=== PATIENT | female | born 1965 | race Caucasian/White ===

== ENCOUNTER 2021-07-09 20:00 | Outpatient (CLI) | payer OTHER, SELFPAY ==
--- NOTE | 2021-08-02 17:48 | WPDSLEEPSTUD ---
Sleep Study Date of Study: 07/09/21 Ordering Provider: Billie Rosenbaum MD Interpreting Physician: Billie Rosenbaum MD Sleep Study Type: Split Polysomnogram Height: 1.63 m Weight: 68.039 kg Body Mass Index: 25.7 Neck Circumference (inches): 14 [place]: 8 Reason for Sleep Study Severe loud snoring Sleep History Amna Harrington is a 55 year old female with loud snoring for 20 years. She has used Unisom, an over the counter sleep aid, for years to initiate sleep. She also takes melatonin between 8:00 p.m. and 9:00 p.m.. She has had witnessed apneas. Her snoring wakes her up and disturbs others. She does not feel rested when she wakes and she feels sleepy throughout the day. She wakes up with headaches. There is a family history of sleep issues with her father having sleep apnea. She frequently has trouble sleeping with a cold, and occasionally wakes at night gasping for breath. she frequently sweats excessively at night. She does not notice her heart pounding or beating irregularly at night. She rarely falls asleep during the day, rarely falls asleep involuntarily and never falls asleep while driving. She does not have loss of muscle tone with strong emotion. She occasionally has daytime difficulties due to excessive sleepiness. She does not feel paralyzed on waking or falling asleep. She rarely has vivid dreamlike scenes upon awakening or falling asleep. She does not feel afraid to go to sleep. She does not have nightmares. She occasionally remembers her dreams. She occasionally has racing thoughts. She occasionally feels sad or depressed. She frequently has anxiety. She frequently has muscular tension. She does not notice parts of her body jerking and she does not kick at night. She does not have crawling or aching feelings in her legs. She does not have any kind of leg pain at night. She rarely has morning jaw pain. She occasionally grinds her teeth during sleep. She occasionally is bothered by pain during the day, occasionally awakened by pain at night. She occasionally wakes up feeling stiff in the morning with sore or achy muscles. She frequently wakes up with pain in the neck and spine. She has memory problems, headaches and fatigue. Normal bedtime is 9:00 p.m. falling asleep within 30 minutes sometimes taking as long as 60 minutes. She typically wakes up 3-5 times during the night. She will only stay awake a few minutes, rollover, reposition and go back to sleep. She wakes the morning at 5:45 a.m.. On the weekends, she goes to bed at 10:00 p.m. and wakes at 7:00 a.m.. She occasionally takes a nap on the weekends. A short nap is not refreshing. She is usually drowsy in the morning for 2 hours or longer. Habits: Tobacco currently half pack per day. Caffeine 3 cups a day, diet Pepsi 2 cans a day. No alcohol or recreational drugs. COUNTS INCLUDE 234 BEDS AT THE [facility] Past Medical History Medical History (Updated 08/02/21 @ 19:53 by Billie Rosenbaum MD) Hypercholesterolemia Osteoporosis PTSD (post-traumatic stress disorder) Surgical History Surgical History (Updated 08/02/21 @ 19:53 by Billie Rosenbaum MD) S/P decompression of ulnar nerve at elbow bilateral, 2013 Family History Family History (Updated 08/02/21 @ 19:51 by Billie Rosenbaum MD) Father Obstructive sleep apnea Social History Social History Smoking status: Current every day smoker Medications Home Medications Medication Instructions Recorded Confirmed Type alendronate 70 mg tablet 70 mg PO WEEKLY 06/11/21 History cholecalciferol (vitamin D3) 10 10 mcg PO DAILY 06/11/21 History mcg (400 unit) capsule diphenhydramine HCl 50 mg/30 mL 50 mg PO QHS PRN 06/11/21 History oral liquid multivitamin 1 tablet PO DAILY 06/11/21 History omega [id number]-fish oil 100 cap PO TID cap 06/11/21 History mg-160 mg-1,000 mg capsule Sleep Procedure This test was performed using the [facility]
[2021-08-02 19:54] VITALS: BMI 25.7
== END 2021-07-10 08:30 | disposition home or self-care (01) ==
LOC: ANHCSM 07-12 07:41
PROVIDERS: Visit Provider Internal Medicine Critical Care Medicine
DX: G47.10 Hypersomnia, unspecified (principal); G47.33 Obstructive sleep apnea (adult) (pediatric)
CPT/HCPCS: 95811